=== PATIENT | male | born 1990 | race Caucasian/White ===

== ENCOUNTER 2019-12-29 07:21 | Emergency (ER) | payer SELFPAY ==
--- NOTE | 2019-12-29 07:59 | EDM.PDOC ---
ED HPI GENERAL MEDICAL PROBLEM - General Chief Complaint: Chemical Exposure Stated Complaint: DRANK ANIT FREEZE Time Seen by Provider: 12/29/19 07:30 Source of Information: Reports: Patient History Limitations: Reports: No Limitations - History of Present Illness INITIAL COMMENTS - FREE TEXT/NARRATIVE: c/o antifreeze ingestion pt lives with his stepfather, they have a shop on their property pt states he had alcohol to drink at 10:30 and went to bed at 10:45p he woke up this AM and went to their shop (his father was still sleeping), at 5:30a he picked up a water bottle thinking it was water and took a large swallow, was going to drink a second swallow and took a small amount and the stopped when he realized what it was says he drank 1-3 ounces states it was dark in the shop he had Gatorade to drink as well as has browns for bfast states he "feels drunk", has slight nausea, no diplopia/TALAMANTES/dizzy pt called earlier to ED and spoke with Dr Pace who was on duty, then decided to come to ED when feeling drunk no f/c/d pt denies intent to harm himself, says he has never harmed himself in the past, on no daily meds, PMH is negative, only time in hospital was surgery for LUE fx - Related Data Allergies Allergy/AdvReac Type Severity Reaction Status Date / Time No Known Allergies Allergy Verified 12/24/13 15:46 Home Meds: Home Meds Penicillin V Potassium 500 mg PO Q6HR #40 tab 07/10/15 [Rx] Hydrocodone/Acetaminophen [[place] 5-325] 1 - 2 tab PO Q4H PRN #20 tablet 07/11/15 [Rx] Past Medical History - Past Health History Medical/Surgical History: Denies Medical/Surgical History - Past Surgical History Musculoskeletal Surgical History: Reports: ORIF, Other (See Below) Social & Family History - Tobacco Use Smoking Status *Q: Current Every Day Smoker Years of Tobacco use: 15 Packs/Tins Daily: 0.5 ED ROS GENERAL - Review of Systems Review Of Systems: See Below Constitutional: Reports: No Symptoms HEENT: Reports: No Symptoms Respiratory: Reports: No Symptoms Cardiovascular: Reports: No Symptoms Endocrine: Reports: No Symptoms GI/Abdominal: Reports: No Symptoms : Reports: No Symptoms Musculoskeletal: Reports: No Symptoms Skin: Reports: No Symptoms Neurological: Reports: Other (feels intoxicated). Denies: Confusion, Dizziness, Headache, Numbness, Paresthesia, Pre-Existing Deficit, Trouble Speaking, Difficulty Walking, Weakness, Change in Speech, Gait Disturbance Psychiatric: Reports: No Symptoms. Denies: Agitation, Anxiety, Depression, Homicidal Ideation, Mood Lability, Suicidal Ideation Hematologic/Lymphatic: Reports: No Symptoms Immunologic: Reports: No Symptoms ED EXAM, BURN/SMOKE INHALATION - Physical Exam Exam: See Below Exam Limited By: No Limitations General Appearance: Alert, WD/WN, No Apparent Distress, Other (good eye contact, normal speech, answers appropriately, NAD) Eye Exam: Bilateral Eye: EOMI, Normal Inspection, PERRL Ears (Abbreviated): Normal External Exam, Hearing Grossly Normal Mouth/Throat: No Symptoms Reported Head: No Symptoms Neck: No Symptoms Respiratory: No Respiratory Distress, Lungs Clear, Normal Breath Sounds, No Accessory Muscle Use Cardiovascular: Regular Rate, Rhythm, No Edema, No Gallop, No Murmur, No Rub GI/Abdominal: Soft, Non-Tender, No Distention Back Exam: Normal Inspection, Full Range of Motion, NT Extremities: Normal Inspection, Normal Range of Motion, Non-Tender, No Pedal Edema Neurological: Alert, Oriented, CN II-XII Intact, Normal Cognition, Normal Gait, No Motor/Sensory Deficits Psychiatric: Normal Affect, Normal Mood Skin Exam: Warm, Dry, Intact, Normal Color, No Rash Lymphatic: No Adenopathy Course - Vital Signs Last Recorded V/S: Last Vital Signs Temp 36.2 C 12/29/19 07:21 Pulse 82 12/29/19 07:21 Resp 16 12/29/19 07:21 BP 142/76 H 12/29/19 07:21 Pulse Ox 100 12/29/19 07:21 - Orders/Labs/Meds Labs: Laboratory Tests 12/29/19 12/29/19 12/29/19 Range/Units 07:50 07:50 07:50 WBC 6.1 (4.5-12.0) X10-3/uL RBC 4.82 (4.30-5.75) x10(6)uL Hgb 15.0 (13.5-17.8) g/dL Hct 44.8 (30.0-51.3) % MCV 93.1 (80-96) fL MCH 31.1 (27.7-33.6) pg MCHC 33.4 (32.2-35.4) g/dL RDW 12.7 (11.5-15.5) % Plt Count 352 (125-369) X10(3)uL MPV 8.0 (7.4-10.4) fL Neut % (Auto) 54.9 (46-82) % Lymph % (Auto) 33.6 (13-37) % [place] % (Auto) 6.1 (4-12) % Eos % (Auto) 5 (1.0-5.0) % Baso % (Auto) 1 (0-2) % Neut # (Auto) 3.3 (1.6-8.3) # Lymph # (Auto) 2.1 (0.6-5.0) # [place] # (Auto) 0.4 (0.0-1.3) # Eos # (Auto) 0.3 (0.0-0.8) # Baso # (Auto) 0.0 (0.0-0.2) # POC VBG pH (7.32-7.43) pH Units POC VBG pCO2 (41-51) mmHg POC VBG HCO3 (21-29) mmol/L VBG Base Excess (-2-3) mmol/L O2 Delivery Device Sodium 142 (135-145) mmol/L Potassium 3.4 L (3.5-5.3) mmol/L Chloride 102 (100-110) mmol/L Carbon Dioxide 28 (21-32) mmol/L BUN 10 (7-18) mg/dL Creatinine 0.8 (0.70-1.30) mg/dL Est Cr Clr Drug Dosing 120.13 mL/min Estimated GFR (MDRD) > 60 (>60) BUN/Creatinine Ratio 12.5 (9-20) Glucose 104 (80-116) mg/dL Lactic Acid (0.4-2.0) mmol/L Calcium 9.1 (8.6-10.2) mg/dL Total Bilirubin 0.8 (0.1-1.3) mg/dL AST 486 H* (5-25) IU/L ALT 375 H* (12-36) U/L Alkaline Phosphatase 69 (56-112) IU/L Total Protein 8.0 (6.0-8.0) g/dL Albumin 4.3 (3.5-5.2) g/dL Globulin 3.7 g/dL Albumin/Globulin Ratio 1.2 Ethyl Alcohol 0.11 H (<0.03) % 12/29/19 12/29/19 Range/Units 07:50 07:50 WBC (4.5-12.0) X10-3/uL RBC (4.30-5.75) x10(6)uL Hgb (13.5-17.8) g/dL Hct (30.0-51.3) % MCV (80-96) fL MCH (27.7-33.6) pg MCHC (32.2-35.4) g/dL RDW (11.5-15.5) % Plt Count (125-369) X10(3)uL MPV (7.4-10.4) fL Neut % (Auto) (46-82) % Lymph % (Auto) (13-37) % [place] % (Auto) (4-12) % Eos % (Auto) (1.0-5.0) % Baso % (Auto) (0-2) % Neut # (Auto) (1.6-8.3) # Lymph # (Auto) (0.6-5.0) # [place] # (Auto) (0.0-1.3) # Eos # (Auto) (0.0-0.8) # Baso # (Auto) (0.0-0.2) # POC VBG pH 7.46 H (7.32-7.43) pH Units POC VBG pCO2 39 L (41-51) mmHg POC VBG HCO3 27 (21-29) mmol/L VBG Base Excess 4 H (-2-3) mmol/L O2 Delivery Device Room air Sodium (135-145) mmol/L Potassium (3.5-5.3) mmol/L Chloride (100-110) mmol/L Carbon Dioxide (21-32) mmol/L BUN (7-18) mg/dL Creatinine (0.70-1.30) mg/dL Est Cr Clr Drug Dosing mL/min Estimated GFR (MDRD) (>60) BUN/Creatinine Ratio (9-20) Glucose (80-116) mg/dL Lactic Acid 1.8 (0.4-2.0) mmol/L Calcium (8.6-10.2) mg/dL Total Bilirubin (0.1-1.3) mg/dL AST (5-25) IU/L ALT (12-36) U/L Alkaline Phosphatase (56-112) IU/L Total Protein (6.0-8.0) g/dL Albumin (3.5-5.2) g/dL Globulin g/dL Albumin/Globulin Ratio Ethyl Alcohol (<0.03) % Meds: Medications Discontinued Medications Generic Name Dose Route Start Last Admin Trade Name W[place]o PRN Reason Stop Dose Admin Potassium Chloride 40 meq 12/29/19 09:12 Klor-Con M20 PO 12/29/19 09:13 ONETIME ONE Thiamine HCl 100 mg 12/29/19 09:13 Vitamin B-1 IVPUSH 12/29/19 09:14 ONETIME ONE - Re-Assessments/Exams Free Text/Narrative Re-Assessment/Exam: 12/29/19 09:17 labs reviewed with pt including inc'd LFTs and ethannol 110 pt had an ethanol level ~290 at 10:30p last night when he last ingested alc, pt reports ingesting two [place], denies alc issues in past RN d/w poison control who suggested possible repeat electrolytes in one hour, however pH actually high and bicarb is well within normal range will give thiamine 100 mg IV as precaution pt states he grew up locally, does not have PCP pt informed that mental health assessment is needed with ODs and he is agreeable to talking with mental health worker via telehealth connection d/w Ruben who is doing the assessment there were minor inconsistencies in the hx given to RN and then to myself, pt pleasant and cooperative without evidence of prevarication or mood disorder or intent of self harm by assessment of RN and myself 12/29/19 09:36 ALT 21.1x ULN, AST 10.4x ULN c/w alcoholic hepatitis 12/29/19 10:05 Ruben thinks pt may have mild depression, did not think he had SI pt agrees to f/u, appointment made at [facility] in 2d (first opening) pt aware of alcohol toxicity to liver and the need for alcohol treatment Departure - Departure Time of Disposition: 09:55 Disposition: Home, Self-Care 01 Condition: Good Clinical Impression: Elevated liver function tests, Hypokalemia, Elevated ETOH level Ethylene glycol poisoning Qualifiers: Encounter type: initial encounter Injury intent: accidental or unintentional Qualified Code(s): T52.8X1A - Toxic effect of other organic solvents, accidental (unintentional), initial encounter - Discharge Information *PRESCRIPTION DRUG MONITORING PROGRAM REVIEWED*: Not Applicable *COPY OF PRESCRIPTION DRUG MONITORING REPORT IN PATIENT SEAMUS: Not Applicable Instructions: Liver Function Tests, Alcohol Use Disorder Referrals: PCP,None [Primary Care Provider] - Forms: ED Department Discharge Additional Instructions: Your ethanol level is 110 which is above the legal limit of 80. Your liver enzymes are elevated at 10-20 times the normal level, which can lead to halfway injury to the liver. See a primary care provider in 2 days. Return to Emergency Department at any time if you feel worse. Sepsis Event Note (ED) - Evaluation Sepsis Screening Result: No Definite Risk - Focused Exam Vital Signs: Vital Signs Temp Pulse Resp BP Pulse Ox 12/29/19 07:21 36.2 C 82 16 142/76 H 100
[2019-12-29 08:03] LABS: BASE EXCESS VENOUS,POC 4 mmol/L (-2-3); HCO3 VENOUS,POC 27 mmol/L (21-29); PCO2 VENOUS,POC 39 mmHg (41-51); PH VENOUS,POC 7.46 pH Units (7.32-7.43)
[2019-12-29] MEDS ORDERED: Potassium Chloride 20 MEQ Tab.ER PO ONE (09:12)
[2019-12-29] MEDS ORDERED: Thiamine 200 MG/2 ML MDV IVPUSH ONE (09:13)
[2019-12-29 11:00] VITALS: BP 118/86; PULSE 77
== END 2019-12-29 10:20 | disposition home or self-care (01) ==
LOC: FB.ED 07:21
DX: T52.8X1A Toxic effect of other organic solvents, accidental (unintentional), initial encounter (principal); R79.89 Other specified abnormal findings of blood chemistry; E87.6 Hypokalemia; F17.210 Nicotine dependence, cigarettes, uncomplicated; Y90.5 Blood alcohol level of 100-119 mg/100 ml
CPT/HCPCS: 36415; 80053; 80307; 83605; 85025; 96374; 99284; A9270; J3411

== ENCOUNTER 2021-01-27 09:33 | Emergency (ER) | payer SELFPAY ==
[2021-01-27] MEDS ORDERED: Ketorolac 30 MG/ML SDV IM ONE (10:05)
[2021-01-27] MEDS ORDERED: Lidocaine 2% Viscous Solution 15 ML Cup PO ONE (10:05)
--- NOTE | 2021-01-27 10:09 | EDM.PDOC ---
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 plans to call dentist in 2 days (Mon) took ibuprofen and APAP at 4a which helped some, however has not been able to sleep Right Jaw Pain Score (Numeric/FACES): 7 - Related Data Allergies Allergy/AdvReac Type Severity Reaction Status Date / Time No Known Allergies Allergy Verified 12/24/13 15:46 Home Meds: Home Meds Penicillin V Potassium 500 mg PO Q6HR #40 tab 07/10/15 [Rx] Hydrocodone/Acetaminophen [[place] 5-325] 1 - 2 tab PO Q4H PRN #20 tablet 07/11/15 [Rx] Amoxicillin 500 mg PO TID #21 tab 01/27/21 [Rx] Past Medical History - Past Health History Medical/Surgical History: Denies Medical/Surgical History - Past Surgical History Musculoskeletal Surgical History: Reports: ORIF, Other (See Below) Other Musculoskeletal Surgeries/Procedures:: left orif Social & Family History - Caffeine Use Caffeine Use: Reports: None - Recreational Drug Use Recreational Drug Use: Yes Drug Use in Last 12 Months: Yes Recreational Drug Type: Reports: Marijuana/Hashish Recreational Drug Use Frequency: Monthly ED ROS ENT - Review of Systems Review Of Systems: See Below Constitutional: Reports: No Symptoms HEENT: Reports: Dental Pain Respiratory: Reports: No Symptoms Endocrine: Reports: No Symptoms GI/Abdominal: Reports: No Symptoms : Reports: No Symptoms Musculoskeletal: Reports: No Symptoms Skin: Reports: No Symptoms Neurological: Reports: No Symptoms Psychiatric: Reports: No Symptoms Hematologic/Lymphatic: Reports: No Symptoms Immunologic: Reports: No Symptoms ED EXAM, ENT - Physical Exam Exam: See Below Exam Limited By: No Limitations General Appearance: Alert, WD/WN, Mild Distress Mouth/Throat: Other (tooth #1 is eroded over 2/3rds of biting surface, 1+ tender to palp. no cheek swell, no LNs, no red/swell/tender gingiva) Course - Vital Signs Last Recorded V/S: Last Vital Signs Temp 36.8 C 01/27/21 09:45 Pulse 72 01/27/21 09:45 Resp 18 01/27/21 09:45 BP 162/93 H 01/27/21 09:45 Pulse Ox 99 01/27/21 09:45 - Re-Assessments/Exams Free Text/Narrative Re-Assessment/Exam: 01/27/21 10:13 large dental caries with secondary infection and nerve pain, no evidence of sinus infection or associated pathology Departure - Departure Time of Disposition: 10:08 Disposition: Home, Self-Care 01 Condition: Good Clinical Impression: Dental abscess - Discharge Information *PRESCRIPTION DRUG MONITORING PROGRAM REVIEWED*: Not Applicable *COPY OF PRESCRIPTION DRUG MONITORING REPORT IN PATIENT SEAMUS: Not Applicable Prescriptions: Amoxicillin 500 mg PO TID #21 tab Instructions: Dental Abscess Additional Instructions: For infection, take amoxicillin 500 mg 1 tab 3 times a day for 7 days. For pain, take acetaminophen 325 mg 3 tabs and ibuprofen 200 mg 3 tabs 4 times a day for 2 days, longer if needed. For pain, put a thin layer of 2% viscous lidocaine on a cotton ball and bite down every hour as needed. Use ice for 10 minutes every hour as needed. Drink cold liquids. Eat cool, soft food. Chew on the left side of your mouth. See your dentist next week. Sepsis Event Note (ED) - Evaluation Sepsis Screening Result: No Definite Risk - Focused Exam Vital Signs: Vital Signs Temp Pulse Resp BP Pulse Ox 01/27/21 09:45 36.8 C 72 18 162/93 H 99
[2021-01-27 17:50] VITALS: BP 146/93; PULSE 69
== END 2021-01-27 10:30 | disposition home or self-care (01) ==
LOC: FB.ED 09:33
DX: K04.7 Periapical abscess without sinus (principal)
CPT/HCPCS: 96372; 99282; A9270; J1885

== ENCOUNTER 2021-06-01 06:17 | Emergency (ER) | payer MEDICAID ==
[2021-06-01 06:38] VITALS: BP 136/62; PULSE 109
== END 2021-06-01 06:45 ==
LOC: FB.ED 06:17
DX: J45.909 Unspecified asthma, uncomplicated (principal)
CPT/HCPCS: 99281; 99283

== ENCOUNTER 2021-06-05 04:53 | Emergency (ER) | payer MEDICAID ==
[2021-06-05] MEDS ORDERED: methylPREDNISolone Sodium Succinate 125 MG/2 ML SDV IVPUSH ONE (09:40)
[2021-06-05] MEDS ORDERED: Albuterol/Ipratropium 3.0-0.5 MG/3 ML Neb Soln NEB ONE (09:40)
== END 2021-06-05 05:00 | disposition left against medical advice (07) ==
LOC: FB.ED 04:53
DX: Z53.21 Procedure and treatment not carried out due to patient leaving prior to being seen by health care provider (principal)

== ENCOUNTER 2021-09-14 05:17 | Emergency (ER) | payer MEDICAID ==
[2021-09-14 05:55] LABS: ESTIMATED GFR 128 mL/min (>60)
[2021-09-14] MEDS ORDERED: Iopamidol 755 Mg/ML 100 ML Bottle IV ONE (05:55)
[2021-09-14 07:25] VITALS: BP 139/71; PULSE 84
== END 2021-09-14 05:55 | disposition left against medical advice (07) ==
LOC: FB.ED 05:17
DX: S06.0X9A Concussion with loss of consciousness of unspecified duration, initial encounter (principal); S00.83XA Contusion of other part of head, initial encounter; S59.901A Unspecified injury of right elbow, initial encounter; F10.129 Alcohol abuse with intoxication, unspecified; F41.9 Anxiety disorder, unspecified; Y90.5 Blood alcohol level of 100-119 mg/100 ml; V86.56XA Driver of dirt bike or motor/cross bike injured in nontraffic accident, initial encounter; Y92.64 Mine or pit as the place of occurrence of the external cause
CPT/HCPCS: 36415; 80053; 80307; 85025; 86140; 99284; 99285

== ENCOUNTER → 2021-10-30 | Emergency (ER) | payer OTHER ==
[~2021-10-30] MED LIST: Ondansetron 4 MG Tab.DIS PO ONE; Ondansetron 4 MG/2 ML SDV IVPUSH ONE; Sodium Chloride 0.9% 1,000 ML IV ONE
[2021-10-31 00:02] LABS: ESTIMATED GFR 43 mL/min (>60)
[2021-10-31 00:17] LABS: ESTIMATED GFR 28 mL/min (>60)
[2021-10-31 00:54] VITALS: BP 136/78; PULSE 72
== END ==
LOC: FB.ED 20:38
DX: N17.9 Acute kidney failure, unspecified (principal); E86.0 Dehydration; F19.10 Other psychoactive substance abuse, uncomplicated
CPT/HCPCS: 36415; 80048; 80307; 85025; 96361; 96374; 99282; 99284-25; J2405; J7030; Q0162

== ENCOUNTER 2024-12-16 13:38 | Emergency (ER) | payer SELFPAY ==
[2024-12-16] MEDS ORDERED: Naloxone 0.4 MG/ML SDV IVPUSH PRN (14:43)
[2024-12-16] MEDS: Ondansetron 4 MG/2 ML SDV IVPUSH ONE (15:01)
[2024-12-16 20:07] VITALS: BP 161/81; PULSE 88
== END 2024-12-16 16:25 ==
LOC: FB.ED 13:38
DX: S62.621B Displaced fracture of middle phalanx of left index finger, initial encounter for open fracture (principal); Z88.8 Allergy status to other drugs, medicaments and biological substances; Z87.891 Personal history of nicotine dependence; W29.2XXA Contact with other powered household machinery, initial encounter; Y93.89 Activity, other specified
CPT/HCPCS: 64450; 73130-26-LT; 73130-LT; 96374; 96375; 99284; 99284-25; J0690; J2270; J2405